=== PATIENT | male | born 1950 | race Caucasian/White ===

== ENCOUNTER 2021-03-25 09:27 | Day surgery (SDC) | payer MEDICARE, BC ==
[~2021-03-25] VITALS: Ht 175.3 cm; Wt 75.8 kg
[2021-03-25] VITALS (8 sets, daily range): BP systolic 118–152; BP diastolic 52–69
[2021-03-25] MEDS ORDERED: TICA90TA2 PO (10:04)
[2021-03-25] MEDS ORDERED: SOLI10TA7 PO (10:04)
[2021-03-25] MEDS ORDERED: MELO-102 PO (10:04)
[2021-03-25] MEDS ORDERED: EZET10TA48 PO (10:04)
[2021-03-25] MEDS ORDERED: METF-436 PO (10:04)
[2021-03-25] MEDS ORDERED: NITR4.9S4 (10:04)
[2021-03-25] MEDS ORDERED: FLUT1AER INH (10:04)
[2021-03-25] MEDS ORDERED: MONT10TA32 PO (10:04)
[2021-03-25] MEDS ORDERED: FENO145T25 PO (10:04)
[2021-03-25] MEDS ORDERED: AMLO10TA13 PO (10:04)
[2021-03-25] MEDS ORDERED: NITR1PAT63 TOP (10:04)
[2021-03-25] MEDS ORDERED: ceFAZolin/D5W- 1GM premix 50 ML IV ONE (10:05)
[2021-03-25] MEDS ORDERED: normal saline 1000ml 1,000 ML IV SCH ×2 (10:05→13:25)
[2021-03-25] MEDS ORDERED: VANCOMYCIN 1,500MG inj. 1,500 MG in normal saline 500ml IV soln 300 ML IV ONE (10:05)
[2021-03-25] MEDS ORDERED: ASPI-1265 PO (10:07)
[2021-03-25] MEDS ORDERED: VIT1CAPS46 PO (10:07)
[2021-03-25 10:36] LABS: BASOPHILS % (AUTO) 0.6 % (0-1); EOSINOPHILS # (AUTO) 0.2 X10'3 (0-0.9); EOSINOPHILS % (AUTO) 3.6 % (0-6); HEMATOCRIT 40.9 % (42.0-52.0); HEMOGLOBIN 13.5 g/dl (14.0-17.9); LYMPHOCYTES # (AUTO) 1.9 X10'3 (1.1-4.8); MEAN PLATELET VOLUME 8.4 FL (7.4-10.4); MONOCYTES # (AUTO) 0.7 X10'3 (0-0.9); MONOCYTES % (AUTO) 10.4 % (2-12); NEUTROPHILS # (AUTO) 3.6 X10'3 (1.8-7.7); NEUTROPHILS % (AUTO) 56.4 % (42-75); PLATELET COUNT 292 X10'3 (140-440); RED BLOOD COUNT 4.81 X10'6 (4.70-6.10); RED CELL DISTRIBUTION WIDTH 15.3 % (11.5-14.5); WHITE BLOOD COUNT 6.4 X10'3 (4.5-11.0)
[2021-03-25 10:52] LABS: ALBUMIN 4.3 G/DL (3.4-5.0); ANION GAP 11 (8-16); BLOOD UREA NITROGEN 53 MG/DL (7-18); BUN/CREATININE RATIO 24.2 (5.4-32.0); CALCIUM 8.9 MG/DL (8.5-10.1); CHLORIDE 107 MMOL/L (99-107); CREATININE 2.19 MG/DL (0.60-1.10); GLUCOSE 102 MG/DL (70-104); MAGNESIUM 2.2 MG/DL (1.5-2.4); POTASSIUM 4.6 MMOL/L (3.5-5.1); SODIUM 141 MMOL/L (135-145); eGFR 30 ML/MIN
[2021-03-25] MEDS ORDERED: cefazolin/dext.iso 2gm/100ml 100 ML IV ONE (11:00)
[2021-03-25] MEDS ORDERED: midazolam 1 mg/ML 2ml injection ONE ×3 (11:30→12:19)
[2021-03-25] MEDS ORDERED: fentaNYL/PF 50MCG/1 ML 2ML syringe ONE ×2 (11:30→12:19)
[2021-03-25] MEDS ORDERED: LIDOcaine 1% W/epiNEPHrine 1:100,000 20ml vial ONE (11:32)
[2021-03-25] MEDS ORDERED: proCHLORperazine 10 MG/2 ml inj ONE (11:59)
[2021-03-25] MEDS ORDERED: vancomycin 1,000mg inj ONE (12:14)
== END 2021-03-25 16:00 | disposition home or self-care (01) ==
LOC: SSTAY O 09:27
PROVIDERS: ATTEND Internal Medicine Cardiovascular Disease
DX: I49.5 Sick sinus syndrome (principal); I25.118 Atherosclerotic heart disease of native coronary artery with other forms of angina pectoris; E78.5 Hyperlipidemia, unspecified; I10 Essential (primary) hypertension; I25.2 Old myocardial infarction; D89.1 Cryoglobulinemia; J45.909 Unspecified asthma, uncomplicated; E11.9 Type 2 diabetes mellitus without complications; Z79.82 Long term (current) use of aspirin; Z79.899 Other long term (current) drug therapy; Z95.1 Presence of aortocoronary bypass graft; Z95.5 Presence of coronary angioplasty implant and graft; Z98.890 Other specified postprocedural states; Z79.84 Long term (current) use of oral hypoglycemic drugs; Z72.89 Other problems related to lifestyle; Z88.8 Allergy status to other drugs, medicaments and biological substances; Z88.5 Allergy status to narcotic agent; Z82.49 Family history of ischemic heart disease and other diseases of the circulatory system; Z82.3 Family history of stroke
CPT/HCPCS: 33208; 36415; 71045; 80048; 83735; 85025; 85610; 99152; 99153; C1785; C1898; J0780; J2250; J3010; J3370; J7030; J7040; 93005; A4565; A4620

== ENCOUNTER 2021-06-07 11:20 | Emergency (ER) | payer MEDICARE, BC ==
[~2021-06-07] VITALS: Ht 175.3 cm; Wt 77.0 kg
[~2021-06-07 11:20] MED LIST: AMLO10TA13 PO; ASPI-1265 PO; EZET10TA48 PO; FENO145T25 PO; FLUT1AER INH; MELO-102 PO; METF-436 PO; MONT-40 PO; NITR1PAT63 TOP; NITR4.9S4; SOLI10TA7 PO; TICA90TA2 PO; VIT1CAPS46 PO
[2021-06-07 11:44] VITALS: BP 147/71
[2021-06-07 14:17] LABS: BASOPHILS % (AUTO) 0.4 % (0-1); EOSINOPHILS # (AUTO) 0.3 X10'3 (0-0.9); EOSINOPHILS % (AUTO) 3.1 % (0-6); HEMATOCRIT 30.4 % (42.0-52.0); HEMOGLOBIN 10.6 g/dl (14.0-17.9); LYMPHOCYTES # (AUTO) 1.3 X10'3 (1.1-4.8); LYMPHOCYTES % (AUTO) 14.9 % (21-51); MEAN CORPUSCULAR HEMOGLOBIN 29.2 PG (27.0-31.0); MEAN CORPUSCULAR HGB CONC 34.7 g/dL (33.0-36.5); MEAN PLATELET VOLUME 8.1 FL (7.4-10.4); MONOCYTES # (AUTO) 1.2 X10'3 (0-0.9); MONOCYTES % (AUTO) 13.8 % (2-12); NEUTROPHILS % (AUTO) 67.8 % (42-75); PLATELET COUNT 305 X10'3 (140-440); RED BLOOD COUNT 3.62 X10'6 (4.70-6.10); RED CELL DISTRIBUTION WIDTH 14.1 % (11.5-14.5); WHITE BLOOD COUNT 8.8 X10'3 (4.5-11.0)
[2021-06-07 14:35] LABS: ALANINE AMINOTRANSFERASE 44 U/L (12-78); ALBUMIN 3.3 G/DL (3.4-5.0); ALBUMIN/GLOBULIN RATIO 0.8 (1.1-1.5); ALKALINE PHOSPHATASE 59 IU/L (46-116); ANION GAP 11 (8-16); ASPARTATE AMINO TRANSFERASE 43 U/L (10-37); BILIRUBIN,TOTAL 0.5 MG/DL (0.1-1.0); BLOOD UREA NITROGEN 19 MG/DL (7-18); BUN/CREATININE RATIO 12.3 (5.4-32.0); CALCIUM 9.1 MG/DL (8.5-10.1); CHLORIDE 99 MMOL/L (99-107); CREATININE 1.55 MG/DL (0.60-1.10); GLUCOSE 115 MG/DL (70-104); POTASSIUM 4.4 MMOL/L (3.5-5.1); SODIUM 133 MMOL/L (135-145); TOTAL CARBON DIOXIDE 23.5 MMOL/L (24-32); TOTAL PROTEIN 7.4 G/DL (6.4-8.2); eGFR 44 ML/MIN
[2021-06-07 14:57] LABS: D-DIMER 1.01 MG/L FEU (0-0.50)
[2021-06-07] MEDS ORDERED: ipratropium/albuterol 3ml nebule NEB ONE (15:35)
[2021-06-07] MEDS ORDERED: iohexol 350MG/ML 100ml bottle IV ONE (15:45)
[2021-06-07] MEDS ORDERED: MESSAGE TO NURSING PO ONE (16:30)
[2021-06-07] MEDS ORDERED: DOXY100C76 PO (17:00)
[2021-06-07] MEDS ORDERED: METH4TAB81 PO (17:00)
[2021-06-07] MEDS ORDERED: AMOX-422 PO (17:00)
== END 2021-06-07 17:59 | disposition home or self-care (01) ==
LOC: ER 11:21
DX: J18.1 Lobar pneumonia, unspecified organism (principal); Z20.822 Contact with and (suspected) exposure to COVID-19; J44.9 Chronic obstructive pulmonary disease, unspecified; R79.1 Abnormal coagulation profile; R06.02 Shortness of breath; Z95.0 Presence of cardiac pacemaker; Z79.899 Other long term (current) drug therapy; Z88.8 Allergy status to other drugs, medicaments and biological substances; Z79.2 Long term (current) use of antibiotics; Z79.82 Long term (current) use of aspirin
CPT/HCPCS: 36415; 71045; 71275; 80053; 83605; 83880; 84145; 84484; 85025; 85379; 87040; 87635; 93005; 94640; 99285; C9803; Q9967; 94760

== ENCOUNTER 2023-06-01 08:48 | Day surgery (SDC) | payer MEDICARE, BC ==
[~2023-06-01] VITALS: Ht 175.3 cm; Wt 73.9 kg
[2023-06-01] VITALS (12 sets, daily range): BP systolic 121–162; BP diastolic 63–81; PULSE 60–62; RESP 10–15; O2SAT 90–100
[~2023-06-01 08:48] MED LIST changes: +METH4TAB81 PO
[2023-06-01] MEDS ORDERED: fentaNYL/PF 50MCG/1 ML 2ML syringe IV ONE (09:10)
[2023-06-01] MEDS ORDERED: normal saline 1000ml 1,000 ML IV SCH (09:10)
[2023-06-01] MEDS ORDERED: MIDAZolam 1mg/ml 10ml vial IV ONE (09:10)
[2023-06-01] MEDS ORDERED: FLUT1BLS4 INH (09:11)
[2023-06-01] MEDS ORDERED: APIX5TAB3 PO (09:11)
[2023-06-01] MEDS ORDERED: CLOP75TA34 PO (09:11)
[2023-06-01] MEDS ORDERED: DIGO-20 PO (09:11)
[2023-06-01 09:34] LABS: BASOPHILS % (AUTO) 0.6 % (0-1); EOSINOPHILS # (AUTO) 0.3 X10'3 (0-0.9); EOSINOPHILS % (AUTO) 4.1 % (0-6); HEMATOCRIT 41.1 % (42.0-52.0); HEMOGLOBIN 13.4 g/dl (14.0-17.9); LYMPHOCYTES # (AUTO) 1.6 X10'3 (1.1-4.8); LYMPHOCYTES % (AUTO) 23.8 % (21-51); MEAN CORPUSCULAR HEMOGLOBIN 26.1 PG (27.0-31.0); MEAN CORPUSCULAR HGB CONC 32.6 g/dL (33.0-36.5); MEAN CORPUSCULAR VOLUME 80.1 FL (78-98); MEAN PLATELET VOLUME 7.9 FL (7.4-10.4); MONOCYTES # (AUTO) 0.8 X10'3 (0-0.9); MONOCYTES % (AUTO) 11.1 % (2-12); NEUTROPHILS # (AUTO) 4.2 X10'3 (1.8-7.7); NEUTROPHILS % (AUTO) 60.4 % (42-75); PLATELET COUNT 274 X10'3 (140-440); RED BLOOD COUNT 5.13 X10'6 (4.70-6.10); RED CELL DISTRIBUTION WIDTH 15.4 % (11.5-14.5); WHITE BLOOD COUNT 6.9 X10'3 (4.5-11.0)
[2023-06-01 09:37] LABS: ALBUMIN 3.6 G/DL (3.4-5.0); ANION GAP 9 (8-16); BLOOD UREA NITROGEN 21 MG/DL (7-18); BUN/CREATININE RATIO 15.7 (10.0-20.0); CALCIUM 9.2 MG/DL (8.5-10.1); CHLORIDE 104 MMOL/L (99-107); CREATININE 1.34 MG/DL (0.60-1.10); GLUCOSE 120 MG/DL (70-104); POTASSIUM 3.9 MMOL/L (3.5-5.1); SODIUM 138 MMOL/L (135-145); TOTAL CARBON DIOXIDE 24.7 MMOL/L (24-32); eCRCL 49 ML/MIN; eGFR 52 ML/MIN
== END 2023-06-01 11:00 | disposition home or self-care (01) ==
LOC: SSTAY O 08:48
PROVIDERS: ATTEND Internal Medicine Cardiovascular Disease
DX: I48.0 Paroxysmal atrial fibrillation (principal); I25.118 Atherosclerotic heart disease of native coronary artery with other forms of angina pectoris; I49.5 Sick sinus syndrome; E78.5 Hyperlipidemia, unspecified; I10 Essential (primary) hypertension; I25.2 Old myocardial infarction; D89.1 Cryoglobulinemia; J45.909 Unspecified asthma, uncomplicated; E11.9 Type 2 diabetes mellitus without complications; Z95.1 Presence of aortocoronary bypass graft; Z95.5 Presence of coronary angioplasty implant and graft; Z95.0 Presence of cardiac pacemaker; Z88.8 Allergy status to other drugs, medicaments and biological substances; Z72.89 Other problems related to lifestyle; Z79.82 Long term (current) use of aspirin; Z79.01 Long term (current) use of anticoagulants; Z79.899 Other long term (current) drug therapy; Z82.3 Family history of stroke; Z82.49 Family history of ischemic heart disease and other diseases of the circulatory system
CPT/HCPCS: 36415; 80048; 83735; 85025; 92960; 93005; J2250; J3010; J7030